=== PATIENT | male | born 1975 | race Two or more races ===

== ENCOUNTER 2016-07-06 16:29 | Outpatient (CLI) | payer OTHER | END 2016-07-06 16:30 | disposition home or self-care (01) | DX: M50.31 Other cervical disc degeneration, high cervical region (principal); M50.222 Other cervical disc displacement at C5-C6 level ==

== ENCOUNTER 2016-07-29 12:16 | Emergency (ER) | payer OTHER ==
--- NOTE | 2016-07-29 13:33 | ED Physician Documentation ---
PD HPI CHEST PAIN - Stated complaint Stated Complaint: CHEST PX,ARM PX - Chief complaint Chief Complaint: Cardiac - History obtained from History obtained from: Patient - History of Present Illness Timing - onset: Other (This is a 41-year-old gentleman with no significant past medical history who since the age of 24 has had intermittent chest pain, like a central twisting in his chest that radiates to the left arm. Usually starts with light activity, but lately has been getting worse. It is intermittent. He had a particularly bad episode while watching TV last night. It is not seem to be related to eating. It is not radiate to the back or jaw. He sometimes has shortness of breath with it and he feels anxious with it. He does occasionally use cocaine, last use 6 days ago. He smokes tobacco. There is no family history of early-onset coronary disease.) Review of Systems Constitutional: denies: Fever, Chills Throat: denies: Dental pain / toothache, Sore throat Cardiac: reports: Chest pain / pressure. denies: Palpitations, Pedal edema, Calf pain Respiratory: reports: Dyspnea. denies: Cough, Hemoptysis, Wheezing GI: denies: Abdominal Pain, Nausea PD PAST MEDICAL HISTORY - Past Surgical History Past Surgical History: No - Present Medications Home Medications: Ambulatory Orders Medication Instructions Recorded Confirmed Cephalexin [Keflex] 500 mg PO QID 7 Days 05/29/15 Clotrimazole 1 gm TP TID #2 cream..g. 05/29/15 - Allergies Allergies/Adverse Reactions: Allergies Allergy/AdvReac Type Severity Reaction Status Date / Time No Known Drug Allergies Allergy Verified 05/29/15 13:23 - Social History Does the pt smoke?: Yes Smoking Status: Current every day smoker Does the pt drink ETOH?: Yes Does the pt have substance abuse?: No PD ED PE NORMAL - Vitals Vital signs reviewed: Yes - General General: Alert and oriented X 3, No acute distress, Other (anxious, speaking fast) - HEENT HEENT: PERRL, EOMI - Neck Neck: Supple, no meningeal sign, No bony TTP - Cardiac Cardiac: RRR, No murmur - Respiratory Respiratory: No respiratory distress, Clear bilaterally - Abdomen Abdomen: Soft, Non tender - Extremities Extremities: No edema, No calf tenderness / cord - Neuro Neuro: Alert and oriented X 3, Normal speech - Psych Psych: Normal mood, Normal affect Results - Vitals Vitals: Vital Signs - 24 hr 07/29/16 12:24 Temperature 37.2 C Heart Rate 115 H Respiratory 22 Rate Blood Pressure 126/93 H O2 Saturation 98 Oxygen O2 Source Room air - EKG (time done) 1227 Rate: Rate (enter#) (96) Rhythm: NSR [place]: Normal Intervals: Normal SC QRS: Normal Ischemia: Normal ST segments Computer interpretation: Agree with computer - Labs Labs: Laboratory Tests 07/29/16 07/29/16 14:10 14:10 D-Dimer 262.2 H Troponin I < 0.04 - Rads (name of study) 2v chest Radiology: EMP read contemporaneously (normal) PD MEDICAL DECISION MAKING - ED course ED course: 41-year-old gentleman with atypical chest pain, some tachycardia but he is anxious. Screened for acute emergency with d-dimer and troponin given his tachycardia and long-standing pain in both were negative (the d-dimer of 260 to be considered negative by most labs and authorities). Departure - Departure Disposition: 01 Home, Self Care Clinical Impression: Atypical chest pain Condition: Good Record reviewed to determine appropriate education?: Yes Instructions: ED Chest Pain NonCardiac Comments: Don't use cocaine. Call your doctor to arrange a follow up appointment. Make the next available appointment. In the interim return anytime if worse or if new symptoms develop. Your blood pressure was elevated today on check in to the emergency department. This does not mean that you have hypertension, it is a common phenomenon to check into the emergency department and have elevated blood pressure. I recommend that you see your primary care physician within the week to have it rechecked when you're feeling better.
--- NOTE | 2016-07-29 14:06 | XRAY Preliminary Report ---
Exam: XR Chest 2 View PA/LAT IMPRESSION: Normal 2-view chest radiography. [facility] SITE ID: [id number]
--- NOTE | 2016-07-29 14:08 | XRAY Report ---
EXAM: CHEST RADIOGRAPHY EXAM DATE: 07/29/2016 01:48 PM. CLINICAL HISTORY: Chest pain. COMPARISON: 05/08/2015. TECHNIQUE: 2 views. FINDINGS: Lungs/Pleura: No focal opacities evident. No pleural effusion. No pneumothorax. Normal volumes. Mediastinum: Heart and mediastinal contours are unremarkable. Other: None. IMPRESSION: Normal 2-view chest radiography. [facility] Referring Provider Line: [phone] SITE ID: [id number]
[2016-07-29 16:01] VITALS: BP 127/88
== END 2016-07-29 16:00 | disposition home or self-care (01) ==
LOC: ED 12:16
DX: R07.89 Other chest pain (principal); F17.200 Nicotine dependence, unspecified, uncomplicated; R03.0 Elevated blood-pressure reading, without diagnosis of hypertension
CPT/HCPCS: 36415; 71020; 84484; 85379; 93005; 93010; 99283; 99284